=== PATIENT | female | born 1975 | race Caucasian/White ===

== ENCOUNTER 2018-06-08 16:03 | Emergency (ER) | payer SELFPAY ==
[~2018-06-08] VITALS: Ht 170.2 cm; Wt 105.8 kg
[~2018-06-08 16:03] MED LIST: ACET650T10 PO; AMLO10TA4 PO; AMOX1TAB61 PO; CEPH-263 PO; CLON-276 PO; CLON0.3T PO; CLON1PAT9 TD; FLUC100T7 PO; HYDR-2155 PO; HYDR-2765 PO; HYDR-3165 PO; HYDR1TAB13 PO; HYDR50TA6 PO; HYDR7.5S PO; LISI-334 PO; LISI10TA2 PO; METO100T7 PO; METO50TA29 PO; METO50TA6 PO; METR250T PO; METR500T PO; ONDA4TAB10 SL; ONDA4TAB7 PO; ONDA8TAB12 PO; OXYC1TAB15 PO; OXYC1TAB19 PO; OXYC1TAB22 PO
[2018-06-08] MEDS ORDERED: IV NORMAL SALINE 1,000ML 1,000 ML IV ONE (17:00)
--- NOTE | 2018-06-08 17:00 | PHYS DOC ---
Past History Past Medical History: Cancer, Diverticulitis, Diabetes, Heart Disease, Other Past Surgical History: Cholecystectomy, Hysterectomy, Other Smoking: Less than 1pk/day Alcohol Use: None Drug Use: None Adult General Chief Complaint Chief Complaint: FACE PAIN HPI HPI Patient is a 43-year-old female presents with right jaw pain and dislocation. She has done this multiple times previously. This afternoon she was retching due to the nausea, vomiting, and diarrheal illness she is experiencing. Her right jaw/TMJ dislocated. She has been unable to get it back into place. She has a history of this due to a jaw fracture in childhood. No difficulty breathing or swallowing. Patient is on Coumadin for renal infarctions. [] Review of Systems Review of Systems Constitutional: Denies fever or chills [] Eyes: Denies change in visual acuity, redness, or eye pain [] HENT: Denies nasal congestion or sore throat [] Respiratory: Denies cough or shortness of breath [] Cardiovascular: No chest pain or palpitations[] GI: Denies abdominal pain, nausea, vomiting, bloody stools or diarrhea [] : Denies dysuria or hematuria [] Musculoskeletal: Denies back pain, see history of present illness[] Integument: Denies rash or skin lesions [] Neurologic: Denies headache, focal weakness or sensory changes [] Endocrine: Denies polyuria or polydipsia [] All other systems were reviewed and found to be within normal limits, except as documented in this note. Current Medications Current Medications Current Medications Medications (Trade) Dose Ordered Sig/Misty Start Time Stop Time Status Last Admin Dose Admin Fentanyl Citrate (Fentanyl 2ml Vial) 50 mcg 1X ONCE 06/08/18 17:00 06/08/18 17:01 UNV Midazolam HCl (Versed) 4 mg 1X ONCE 06/08/18 17:00 06/08/18 17:01 UNV Allergies Allergies Allergies Coded Allergies Type Severity Reaction Last Updated Verified ketorolac Allergy Severe 11/02/14 No NSAIDS (Non-Steroidal Anti-Inflamma Allergy Intermediate Rash 11/02/14 No levofloxacin Allergy Intermediate Hives 11/02/14 No nitroglycerin Allergy Intermediate 11/02/14 No prochlorperazine Allergy Intermediate 11/02/14 No Physical Exam Physical Exam Constitutional: Well developed, well nourished, no acute distress, non-toxic appearance. [] HENT: Normocephalic, jaw deviated to the left, limited mouth opening, bilateral external ears normal, oropharynx moist, no oral exudates, nose normal. [] Eyes: PERRLA, EOMI, conjunctiva normal, no discharge. [] Neck: Normal range of motion, no tenderness, supple, no stridor. [] Cardiovascular:Heart rate regular rhythm, no murmur [] Lungs & Thorax: Bilateral breath sounds clear to auscultation [] Abdomen: Bowel sounds normal, soft, no tenderness, no masses, no pulsatile masses. [] Skin: Warm, dry, no erythema, no rash. [] Back: No tenderness, no CVA tenderness. [] Extremities: No tenderness, no cyanosis, no clubbing, ROM intact, no edema. [] Neurologic: Alert and oriented X 3, normal motor function, normal sensory function, no focal deficits noted. [] Psychologic: Affect normal, judgement normal, mood normal. [] Current Patient Data Vital Signs Vital Signs Date Time Temp Pulse Resp B/P (MAP) Pulse Ox O2 Delivery O2 Flow Rate FiO2 06/08/18 16:19 98.3 100 18 98 Room Air EKG EKG [] Radiology/Procedures Radiology/Procedures [] Course & Med Decision Making Course & Med Decision Making Pertinent Labs and Imaging studies reviewed. (See chart for details) ED course: Patient arrived, was placed in bed, and tolerated exam well. Patient was given an initial sedation with 200 g of fentanyl and 10 mg of Versed which when she relaxed her jaw seemed to go midline but unable to fully relax her and as she recovered from this she was still deviating her jaw to the left. When my colleague arrived at 1800 week performed a deeper sedation using 100 mg of propofol. There was no specific reduction of the jaw. Everything lined up. Without evidence of a dislocation. Patient recovered from the sedation and was discharged in improved condition.[] Dragon Disclaimer Dragon Disclaimer This electronic medical record was generated, in whole or in part, using a voice recognition dictation system. Departure Departure: Impression: Primary Impression: Jaw pain Additional Impression: Nausea and vomiting Disposition: HOME, SELF-CARE Condition: IMPROVED Referrals: MAGGI CASANOVA MD (PCP) Follow-up in 2 days Patient Instructions: Jaw Dislocation Additional Instructions: Drink plenty of fluids, frequent small sips. No fatty foods, no milk, and no pepper for the next 48 hours. For the next 48 hours eat a diet rich in carbohydrates with foods such as bananas, rice, applesauce, and toast. Follow-up with your regular doctor in 2 days. Return to the ER if worsening discomfort or any other concerns. Scripts Hyoscyamine Sulfate (LEVSIN) 0.125 Mg Tablet 0.125 MG PO QID for abdominal pain/cramping, #30 TAB Prov: DIONE SPARKS 06/08/18 Metoclopramide Hcl (REGLAN) 10 Mg Tablet 10 MG PO QID for nausea and vomiting, #30 TAB Prov: DIONE SPARKS DO 06/08/18 Procedural Sedation Proc Sed Indication: Right jaw dislocation [] Consent: Yes[] Physician Involvement: The attending physician was present and supervising this procedure. Last by mouth solids were yesterday. Last by mouth liquids were this morning, greater than 6 hours prior to arrival Pre-Sedation Documentation and Exam: Limited jaw opening due to the dislocation, jaw deviated to left [] Airway Assessment: Patent maintainable[] Prior History of Anesthesia Complications: None[] ASA Classification: 2[] Sedation/ Anesthesia Plan: Fentanyl and Versed[] Medications Used: Fentanyl and Versed, and propofol[] Monitoring and Safety: The patient was placed on a quality assurance monitor final and vital signs, pulse oximetry and level of consciousness were continuously evaluated throughout the procedure. The patient was closely monitored until recovery from the medications was complete and the patient had returned to baseline status. Respiratory therapy was on standby at all times during the procedure. (The following sections must be completed) Post-Sedation Vital Signs: [EDM.VS] Post-Sedation Exam: Patient awake alert, maintaining airway, no deviation of the jaw[] Complications: Transient hypoxia to 89%[] Vital Signs Vital Signs Date Time Temp Pulse Resp B/P (MAP) Pulse Ox O2 Delivery O2 Flow Rate FiO2 06/08/18 16:19 98.3 100 18 98 Room Air Problem Qualifiers Additional Impression: Nausea and vomiting Vomiting type: unspecified Vomiting Intractability: non-intractable Qualified Codes: R11.2 - Nausea with vomiting, unspecified DIONE SPARKS Jun 08, 2018 17:00
[2018-06-08] MEDS ORDERED: MIDAZOLAM HCL PF 5 MG/5 ML VIAL. IV ONE (17:15)
[2018-06-08 17:25] LABS: BASO % 0 % (0-3); EOS # 0.2 x10^3/uL (0.0-0.7); EOS % 2 % (0-3); HEMATOCRIT 47.3 % (36.0-47.0); HEMOGLOBIN 16.1 g/dL (12.0-15.5); LYMPH # 2.5 x10^3/uL (1.0-4.8); LYMPH % 21 % (24-48); MEAN CORPUSCULAR HEMOGLOBIN 30 pg (25-35); MEAN CORPUSCULAR HGB CONC 34 g/dL (31-37); MEAN CORPUSCULAR VOLUME 87 fL (79-100); MONO # 0.8 x10^3/uL (0.0-1.1); MONO % 7 % (0-9); NEUT # 8.5 x10^3uL (1.8-7.7); NEUT % 71 % (31-73); PLATELET COUNT 295 x10^3/uL (140-400); RED BLOOD COUNT 5.42 x10^6/uL (3.50-5.40); RED CELL DISTRIBUTION WIDTH 15.5 % (11.5-14.5)
[2018-06-08 17:44] LABS: ALBUMIN 3.9 g/dL (3.4-5.0); ALBUMIN/GLOBULIN RATIO 0.9 (1.0-1.7); CALCIUM 9.5 mg/dL (8.5-10.1); CREATININE 0.7 mg/dL (0.6-1.0); GFR 90.5; POTASSIUM 4.2 mmol/L (3.5-5.1); TOTAL BILIRUBIN 0.3 mg/dL (0.2-1.0); TOTAL PROTEIN 8.4 g/dL (6.4-8.2)
[2018-06-08 17:45] LABS: PREG TEST PT QUAL NEGATIVE (NEG)
[2018-06-08] MEDS ORDERED: PROPOFOL 20 ML IV ONE (18:07)
[2018-06-08 18:40] VITALS: BP 133/75
[2018-06-08] MEDS ORDERED: METO10TA81 PO (18:51)
[2018-06-08] MEDS ORDERED: HYOS0.1264 PO (18:51)
== END 2018-06-08 19:00 | disposition home or self-care (01) ==
LOC: ER 16:03
DX: S03.01XA Dislocation of jaw, right side, initial encounter (principal); R11.2 Nausea with vomiting, unspecified; R19.7 Diarrhea, unspecified; E11.9 Type 2 diabetes mellitus without complications; F17.200 Nicotine dependence, unspecified, uncomplicated; Z88.6 Allergy status to analgesic agent; Z88.1 Allergy status to other antibiotic agents; Z88.8 Allergy status to other drugs, medicaments and biological substances; X58.XXXA Exposure to other specified factors, initial encounter; Y93.89 Activity, other specified; Y92.89 Other specified places as the place of occurrence of the external cause; Y99.8 Other external cause status
CPT/HCPCS: 21480; 36415; 80053; 83690; 84703; 85025; 85610; 96360; 99285; J2250; J3010; 99152; 99284-25; J7030

== ENCOUNTER 2018-07-23 16:29 | Emergency (ER) | payer SELFPAY ==
[~2018-07-23] VITALS: Ht 170.2 cm; Wt 100.7 kg
[~2018-07-23 16:29] MED LIST changes: +HYOS0.1264 PO; +METO10TA81 PO
[2018-07-23] MEDS ORDERED: IV NORMAL SALINE 1,000ML 1,000 ML IV SCH (17:23)
--- NOTE | 2018-07-23 17:29 | PHYS DOC ---
Past History Past Medical History: Cancer (breast and uterine), Hypertension, Kidney Stones, Other ([facility]) Past Surgical History: Cholecystectomy, Hysterectomy, Other Additional Past Surgical Histo: cardiac stent (DIONE SPARKS DO) Smoking: Less than 1pk/day Additional Smoking Information: 1 PPD Alcohol Use: None Drug Use: None (DIONE SPARKS DO) Adult General Chief Complaint Chief Complaint: BLOOD IN URINE HPI HPI Patient is a 43-year-old female presents with right flank pain and hematuria. This started this morning. Similar to previous episodes of kidney stones. No dysuria. No urgency or frequency. No fever. No relief with home medicines. Patient is on Coumadin for previous cardiac issues to include a cardiac stent, as well as previous cancer. Nothing makes the symptoms better or worse. Pain is currently as 7 out of 10[] (DIONE SPARKS DO) Review of Systems Review of Systems Constitutional: Denies fever or chills [] Eyes: Denies change in visual acuity, redness, or eye pain [] HENT: Denies nasal congestion or sore throat [] Respiratory: Denies cough or shortness of breath [] Cardiovascular: No chest pain or palpitations[] GI: Denies abdominal pain, some nausea. No vomiting, bloody stools or diarrhea [] : Denies dysuria and a see history of present illness[] Musculoskeletal: Denies back pain or joint pain [] Integument: Denies rash or skin lesions [] Neurologic: Denies headache, focal weakness or sensory changes [] Endocrine: Denies polyuria or polydipsia [] All other systems were reviewed and found to be within normal limits, except as documented in this note. (DIONE SPARKS DO) Allergies Allergies Allergies Coded Allergies Type Severity Reaction Last Updated Verified ketorolac Allergy Severe 11/02/14 No NSAIDS (Non-Steroidal Anti-Inflamma Allergy Intermediate Rash 11/02/14 No levofloxacin Allergy Intermediate Hives 11/02/14 No nitroglycerin Allergy Intermediate 11/02/14 No prochlorperazine Allergy Intermediate 11/02/14 No (DIONE SPARKS DO) Physical Exam Physical Exam Constitutional: Well developed, well nourished, mild discomfort, non-toxic appearance. [] HENT: Normocephalic, atraumatic, bilateral external ears normal, oropharynx moist, no oral exudates, nose normal. [] Eyes: PERRLA, EOMI, conjunctiva normal, no discharge. [] Neck: Normal range of motion, no tenderness, supple, no stridor. [] Cardiovascular:Heart rate is tachycardic with a regular rhythm, no murmur [] Lungs & Thorax: Bilateral breath sounds clear to auscultation [] Abdomen: Bowel sounds normal, soft, no tenderness, no masses, no pulsatile masses. [] Skin: Warm, dry, no erythema, no rash. [] Back: No tenderness, right CVA tenderness, no left CVA tenderness. [] Extremities: No tenderness, no cyanosis, no clubbing, ROM intact, no edema. [] Neurologic: Alert and oriented X 3, normal motor function, normal sensory function, no focal deficits noted. [] Psychologic: Affect normal, judgement normal, mood normal. [] (DIONE SPARKS DO) Current Patient Data Vital Signs Vital Signs Date Time Temp Pulse Resp B/P (MAP) Pulse Ox O2 Delivery O2 Flow Rate FiO2 07/23/18 16:57 98.3 125 24 97 Room Air (DIONE SPARKS DO) EKG EKG [] (DIONE SPARKS DO) Radiology/Procedures Radiology/Procedures [] (DIONE SPARKS DO) Radiology/[place] [id number] IMAGING REPORT Signed PATIENT: JOE ROSE ACCOUNT: [id number] : 1975 LOCATION: ER AGE: 43 SEX: F EXAM STATUS: REG ER ORD. PHYSICIAN: DIONE SPARKS DO REASON: Severe right flank pain, nausea. Hx: Kidney stones PROCEDURE: CT ABDOMEN PELVIS WO CONTRAST Exam performed: CT abdomen and pelvis without contrast. HISTORY: Severe right flank pain history of renal stones. DATE OF SERVICE: 07/23/2018. COMPARISON: CT abdomen and pelvis without contrast from July 23, 2015. TECHNIQUE: Contiguous helical acquisitions are obtained through the abdomen and pelvis without IV contrast. Sagittal and coronal reformatted images are obtained and reviewed. FINDINGS: Minimal linear opacity seen in the anterior right lower lobe, the remainder Lung bases are clear. Visualized heart is normal. Unopacified liver, spleen and pancreas appear normal. Cholecystectomy. Both adrenal glands and bilateral kidneys are normal in size. There is no hydronephrosis or nephrolithiasis. Mild atheromatous aortic calcification. Unopacified small and large bowel loops are nondilated and unremarkable. Appendix is normal. No inflammatory changes in the right lower quadrant. Sigmoid diverticulosis. Extensive stool in the rectosigmoid region. Urinary bladder is distended. Hysterectomy. No adnexal masses seen. Bones are normal. IMPRESSION: No acute intra-abdominal or pelvic process detected. PQRS Compliance Statement: One or more of the following individualized dose reduction techniques were utilized for this examination: 1. Automated exposure control 2. Adjustment of the mA and/or kV according to patient size 3. Use of iterative reconstruction technique Electronically signed by: Kelli Jean MD (07/23/2018 7:00 PM) [facility] DICTATED AND SIGNED BY: KELLI JEAN MD DATE: 07/23/18 1900 CC: DIONE SPARKS DO; NADINE FLEMING MD; MAGGI CASANOVA MD ~ (NADINE FLEMING MD) Course & Med Decision Making Course & Med Decision Making Pertinent Labs and Imaging studies reviewed. (See chart for details) [ED course: Patient arrived, was placed in bed, and tolerated exam well. Patient care was endorsed to the night physician at 1800 with laboratory testing and imaging pending.] (DIONE SPARKS DO) Course & Med Decision Making Dianelys[pect renal colic- push fluids, vitamin C drinks. Follow with primary. Return if any concerns. Tylenol and Percocet for marked pain. Zofran for nausea and vomiting. Return if any concerns. Avoid constipation with MOM daily if taking a narcotic. Must follow up hematuria, avoid dehydration . Return if any concerns Impression: 1. Renal Colic 2. Dehydration 3. Hematuria 4. Elevated Glucose 140 Must follow up labs and review CT with primary. (NADINE FLEMING MD) Dragon Disclaimer Dragon Disclaimer This electronic medical record was generated, in whole or in part, using a voice recognition dictation system. (DIONE SPARKS DO) Departure Departure: Referrals: MAGGI CASANOVA MD (PCP) Scripts Oxycodone HCl/Acetaminophen (Percocet 5-325 mg Tablet) 1 Each Tablet 1 EACH PO qidp for colic, #30 TAB Prov: NADINE FLEMING MD 07/23/18 Ondansetron Hcl (ZOFRAN) 8 Mg Tablet 8 MG PO QIDPRN PRN for NAUSEA/VOMITING, #30 BOTTLE Prov: NADINE FLEMING MD 07/23/18 Discharge Summary Visit Information Final Diagnosis Problems Medical Problems: (1) Renal colic Status: Acute (NADINE FLEMING MD) Brief Hospital Course Allergies Allergies Coded Allergies Type Severity Reaction Last Updated Verified ketorolac Allergy Severe 11/02/14 No NSAIDS (Non-Steroidal Anti-Inflamma Allergy Intermediate Rash 11/02/14 No levofloxacin Allergy Intermediate Hives 11/02/14 No nitroglycerin Allergy Intermediate 11/02/14 No prochlorperazine Allergy Intermediate 11/02/14 No Vital Signs Vital Signs Date Time Temp Pulse Resp B/P (MAP) Pulse Ox O2 Delivery O2 Flow Rate FiO2 07/23/18 20:20 98.2 101 20 184/123 (143) 97 Room Air Lab Results Laboratory Tests Test 07/23/18 17:30 07/23/18 18:25 Urine Collection Type Unknown Urine Color Sravani Urine Clarity Hazy Urine pH 7.5 Urine Specific [place] 1.015 Urine Protein 100 mg/dl (NEG-TRACE) Urine Glucose (UA) Neg mg/dL (NEG) Urine Ketones (Stick) Neg mg/dL (NEG) Urine Blood Large (NEG) Urine Nitrite Neg (NEG) Urine Bilirubin Neg (NEG) Urine Urobilinogen Dipstick 0.2 mg/dL (0.2 mg/dL) Urine Leukocyte Esterase Neg (NEG) Urine RBC 1-2 /HPF (0-2) Urine WBC 0 /HPF (0-4) Urine Squamous Epithelial Cells Occ /LPF Urine Bacteria 0 /HPF (0-FEW) White Blood Count 9.7 x10^3/uL (4.0-11.0) Red Blood Count 5.00 x10^6/uL (3.50-5.40) Hemoglobin 15.0 g/dL (12.0-15.5) Hematocrit 44.5 % (36.0-47.0) Mean Corpuscular Volume 89 fL (79-100) Mean Corpuscular Hemoglobin 30 pg (25-35) Mean Corpuscular Hemoglobin Concent 34 g/dL (31-37) Red Cell Distribution Width 15.2 % (11.5-14.5) Platelet Count 230 x10^3/uL (140-400) Neutrophils (%) (Auto) 69 % (31-73) Lymphocytes (%) (Auto) 22 % (24-48) Monocytes (%) (Auto) 7 % (0-9) Eosinophils (%) (Auto) 1 % (0-3) Basophils (%) (Auto) 1 % (0-3) Neutrophils # (Auto) 6.7 x10^3uL (1.8-7.7) Lymphocytes # (Auto) 2.1 x10^3/uL (1.0-4.8) Monocytes # (Auto) 0.7 x10^3/uL (0.0-1.1) Eosinophils # (Auto) 0.1 x10^3/uL (0.0-0.7) Basophils # (Auto) 0.1 x10^3/uL (0.0-0.2) Prothrombin Time 10.6 SEC (9.4-11.4) Prothromb Time International Ratio 1.1 (0.9-1.1) Activated Partial Thromboplast Time 25 SEC (23-33) Sodium Level 142 mmol/L (136-145) Potassium Level 3.6 mmol/L (3.5-5.1) Chloride Level 105 mmol/L (98-107) Carbon Dioxide Level 27 mmol/L (21-32) Anion Gap 10 (6-14) Blood Urea Nitrogen 10 mg/dL (7-20) Creatinine 0.7 mg/dL (0.6-1.0) Estimated GFR (Cockcroft-Gault) 90.5 BUN/Creatinine Ratio 14 (6-20) Glucose Level 140 mg/dL (70-99) Calcium Level 9.4 mg/dL (8.5-10.1) Total Bilirubin 0.4 mg/dL (0.2-1.0) Aspartate Amino Transf (AST/SGOT) 18 U/L (15-37) Alanine Aminotransferase (ALT/SGPT) 25 U/L (14-59) Alkaline Phosphatase 104 U/L (46-116) Total Protein 7.7 g/dL (6.4-8.2) Albumin 3.7 g/dL (3.4-5.0) Albumin/Globulin Ratio 0.9 (1.0-1.7) Serum Test, Qualitative Negative (NEG) Brief Hospital Course Ms. Rose is a 43 old male who presented with renal colic. (NADINE FLEMING MD) Discharge Information Condition at Discharge: Improved, Stable Disposition/Orders: D/C to Home Dischare Medications Current Medications Morphine Sulfate (Morphine 2mg Syringe) 2 mg PRN Q15MIN PRN IV/SQ PAIN GREATER THAN 3/10 Last administered on 07/23/18at 19:18; Start 07/23/18 at 17:30; Stop 07/23/18 at 20:56; Status DC Sodium Chloride 1,000 ml @ 1,000 mls/hr Q1H IV Last administered on 07/23/18at 18:22; Start 07/23/18 at 17:23; Stop 07/23/18 at 18:22; Status DC Ondansetron HCl (Zofran) 4 mg 1X ONCE IV Last administered on 07/23/18at 18:20; Start 07/23/18 at 17:30; Stop 07/23/18 at 17:31; Status DC Magnesium Hydroxide (Milk Of Magnesia) 2,400 mg 1X ONCE PO ; Start 07/23/18 at 20:30; Stop 07/23/18 at 20:31; Status DC Active Scripts Active Percocet 5-325 mg Tablet (Oxycodone HCl/Acetaminophen) 1 Each Tablet 1 Each PO QIDP Zofran (Ondansetron Hcl) 8 Mg Tablet 8 Mg PO QIDPRN PRN Levsin (Hyoscyamine Sulfate) 0.125 Mg Tablet 0.125 Mg PO QID Reglan (Metoclopramide Hcl) 10 Mg Tablet 10 Mg PO QID Zofran Odt (Ondansetron) 8 Mg Tab.rapdis 8 Mg PO QIDPRN PRN Diflucan (Fluconazole) 100 Mg Tablet 100 Mg PO DAILY Flagyl (Metronidazole) 250 Mg Tablet 500 Mg PO TID 10 Days Keflex (Cephalexin) 250 Mg Capsule 500 Mg PO TID 10 Days Vicodin 5-300 Mg Tablet (Hydrocodone Bit/Acetaminophen) 1 Each Tablet 1 Each PO QIDPRN PRN Zofran (Ondansetron Hcl) 4 Mg Tablet 1 Tab PO Q6HRS Zofran Odt (Ondansetron) 4 Mg Tab.rapdis 1 Tab SL Q6-8HRS PRN [place] 5-325 Tablet (Hydrocodone Bit/Acetaminophen) 1 Each Tablet 1 Tab PO PRN Q6HRS PRN Augmentin 875-125 Tablet (Amoxicillin/Potassium Clav) 1 Each Tablet 1 Tab PO BID Vicodin 5-300 Mg Tablet (Hydrocodone Bit/Acetaminophen) 1 Each Tablet 1 Each PO QIDPRN PRN Percocet 7.5-325 Mg Tablet (Oxycodone Hcl/Acetaminophen) 1 Each Tablet 1 Tab PO QID PRN Hydrocodone-Apap 7.5-325 (Hydrocodone Bit/Acetaminophen) 1 Each Tablet 1 Tab PO QID Clonidine Hcl 0.2 Mg Tablet 1 Tab PO BID Reported Catapres-Tts 1 (Clonidine) 1 Each Patch.tdwk 1 Each TD WEEKLY Hydrochlorothiazide Tablet (Hydrochlorothiazide) 50 Mg Tablet 25 Mg PO DAILY Metoprolol Tartrate 100 Mg Tablet 100 Mg PO BID Lisinopril 20 Mg Tablet 20 Mg PO DAILY Norvasc (Amlodipine Besylate) 10 Mg Tablet 1 Tab PO DAILY (NADINE FLEMING MD) Dragon Disclaimer This chart was dictated in whole or in part using Voice Recognition software in a busy, high-work load, and often noisy Emergency Department environment. It may contain unintended and wholly unrecognized errors or omissions. (NADINE FLEMING MD) DIONE SPARKS DO Jul 23, 2018 17:29 NADINE FLEMING MD Jul 23, 2018 19:57
[2018-07-23] MEDS ORDERED: ONDANSETRON PF 4 MG/2 ML VIAL. IV ONE (17:30)
[2018-07-23] MEDS: MORPHINE SULFATE 2 MG/ML DISP.SYRIN. IV/SQ PRN ×2 (18:21→19:18)
[2018-07-23 18:43] LABS: BASO # 0.1 x10^3/uL (0.0-0.2); BASO % 1 % (0-3); EOS # 0.1 x10^3/uL (0.0-0.7); EOS % 1 % (0-3); HEMATOCRIT 44.5 % (36.0-47.0); LYMPH # 2.1 x10^3/uL (1.0-4.8); LYMPH % 22 % (24-48); MEAN CORPUSCULAR HEMOGLOBIN 30 pg (25-35); MEAN CORPUSCULAR HGB CONC 34 g/dL (31-37); MEAN CORPUSCULAR VOLUME 89 fL (79-100); MONO # 0.7 x10^3/uL (0.0-1.1); MONO % 7 % (0-9); NEUT # 6.7 x10^3uL (1.8-7.7); NEUT % 69 % (31-73); PLATELET COUNT 230 x10^3/uL (140-400); RED CELL DISTRIBUTION WIDTH 15.2 % (11.5-14.5); WHITE BLOOD COUNT 9.7 x10^3/uL (4.0-11.0)
[2018-07-23 18:58] LABS: PREG TEST PT QUAL NEGATIVE (NEG)
[2018-07-23 18:59] LABS: BACTERIA,URINE 0 /HPF (0-FEW); BILIRUBIN,URINE NEG (NEG); CLARITY,URINE HAZY; COLOR,URINE AMBER; GLUCOSE,URINE NEG (NEG); NITRITE,URINE NEG (NEG); SQUAMOUS EPITHELIAL CELL,UR OCC /LPF; UROBILINOGEN,URINE 0.2 mg/dL (0.2 mg/dL); WBC,URINE 0 /HPF (0-4)
--- NOTE | 2018-07-23 19:03 | RAD ---
Exam performed: CT abdomen and pelvis without contrast. HISTORY: Severe right flank pain history of renal stones. DATE OF SERVICE: 07/23/2018. COMPARISON: CT abdomen and pelvis without contrast from July 23, 2015. TECHNIQUE: Contiguous helical acquisitions are obtained through the abdomen and pelvis without IV contrast. Sagittal and coronal reformatted images are obtained and reviewed. FINDINGS: Minimal linear opacity seen in the anterior right lower lobe, the remainder Lung bases are clear. Visualized heart is normal. Unopacified liver, spleen and pancreas appear normal. Cholecystectomy. Both adrenal glands and bilateral kidneys are normal in size. There is no hydronephrosis or nephrolithiasis. Mild atheromatous aortic calcification. Unopacified small and large bowel loops are nondilated and unremarkable. Appendix is normal. No inflammatory changes in the right lower quadrant. Sigmoid diverticulosis. Extensive stool in the rectosigmoid region. Urinary bladder is distended. Hysterectomy. No adnexal masses seen. Bones are normal. IMPRESSION: No acute intra-abdominal or pelvic process detected. PQRS Compliance Statement: One or more of the following individualized dose reduction techniques were utilized for this examination: 1. Automated exposure control 2. Adjustment of the mA and/or kV according to patient size 3. Use of iterative reconstruction technique Electronically signed by: Kelli Jean MD (07/23/2018 7:00 PM) [facility]
[2018-07-23 19:06] LABS: ALBUMIN 3.7 g/dL (3.4-5.0); ALBUMIN/GLOBULIN RATIO 0.9 (1.0-1.7); CALCIUM 9.4 mg/dL (8.5-10.1); CREATININE 0.7 mg/dL (0.6-1.0); GFR 90.5; POTASSIUM 3.6 mmol/L (3.5-5.1); TOTAL BILIRUBIN 0.4 mg/dL (0.2-1.0); TOTAL PROTEIN 7.7 g/dL (6.4-8.2)
[2018-07-23] MEDS ORDERED: OXYC-325 PO (20:02)
[2018-07-23] MEDS ORDERED: ONDA8TAB9 PO (20:02)
[2018-07-23 20:20] VITALS: BP 184/123
[2018-07-23] MEDS ORDERED: MAGNESIUM HYDROXIDE 2,400 MG/30 ML ORAL.SUSP. PO ONE (20:30)
== END 2018-07-23 20:20 | disposition home or self-care (01) ==
LOC: ER 16:29
DX: N23 Unspecified renal colic (principal); R73.9 Hyperglycemia, unspecified; E86.0 Dehydration; I10 Essential (primary) hypertension; F17.200 Nicotine dependence, unspecified, uncomplicated; Z87.442 Personal history of urinary calculi; Z90.49 Acquired absence of other specified parts of digestive tract; Z90.710 Acquired absence of both cervix and uterus; Z88.6 Allergy status to analgesic agent; Z88.1 Allergy status to other antibiotic agents; Z88.8 Allergy status to other drugs, medicaments and biological substances
CPT/HCPCS: 36415; 74176; 80053; 81001; 84703; 85025; 85610; 85730; 96361; 96374; 96375; 96376; 99285; J2270; J2405; J7030

== ENCOUNTER 2018-10-25 12:28 | Emergency (ER) | payer SELFPAY ==
[~2018-10-25] VITALS: Ht 170.2 cm; Wt 105.8 kg
[~2018-10-25 12:28] MED LIST changes: +ONDA8TAB9 PO; +OXYC-325 PO
--- NOTE | 2018-10-25 12:46 | PHYS DOC ---
Past History Past Medical History: Cancer, Hypertension, Kidney Stones, Other Past Surgical History: Cholecystectomy, Hysterectomy, Other Additional Past Surgical Histo: cardiac stent Smoking: Less than 1pk/day Alcohol Use: None Drug Use: None Adult General Chief Complaint Chief Complaint: DENTAL PROBLEM HPI HPI Patient is a 43-year-old female presents with right jaw dislocation. This is happened to her previously. This morning she was yawning when she felt her jaw pop out of socket. No trauma. No nausea or vomiting. Last oral intake was milk at approximately 7 AM, last solid food intake was yesterday. No difficulty breathing. Discomfort is moderate. No radiation of discomfort.[] Review of Systems Review of Systems Constitutional: Denies fever or chills [] Eyes: Denies change in visual acuity, redness, or eye pain [] HENT: Denies nasal congestion or sore throat, see history of present illness [] Respiratory: Denies cough or shortness of breath [] Cardiovascular: No chest pain or palpitations[] GI: Denies abdominal pain, nausea, vomiting, bloody stools or diarrhea [] : Denies dysuria or hematuria [] Musculoskeletal: Denies back pain or joint pain [] Integument: Denies rash or skin lesions [] Neurologic: Denies headache, focal weakness or sensory changes [] Endocrine: Denies polyuria or polydipsia [] All other systems were reviewed and found to be within normal limits, except as documented in this note. Allergies Allergies Allergies Coded Allergies Type Severity Reaction Last Updated Verified ketorolac Allergy Severe 11/02/14 No NSAIDS (Non-Steroidal Anti-Inflamma Allergy Intermediate Rash 11/02/14 No levofloxacin Allergy Intermediate Hives 11/02/14 No nitroglycerin Allergy Intermediate 11/02/14 No prochlorperazine Allergy Intermediate 11/02/14 No Physical Exam Physical Exam Constitutional: Well developed, well nourished, no acute distress, non-toxic appearance. [] HENT: Normocephalic, atraumatic, bilateral external ears normal. Limited mouth opening. Jaw shifted to the left.. [] Eyes: PERRLA, EOMI, conjunctiva normal, no discharge. [] Neck: Normal range of motion, no tenderness, supple, no stridor. [] Cardiovascular:Heart rate regular rhythm, no murmur [] Lungs & Thorax: Bilateral breath sounds clear to auscultation [] Abdomen: Not examined[] Skin: Warm, dry, no erythema, no rash. [] Back: No tenderness, no CVA tenderness. [] Extremities: No tenderness, no cyanosis, no clubbing, ROM intact, no edema. [] Neurologic: Alert and oriented X 3, normal motor function, normal sensory function, no focal deficits noted. [] Psychologic: Affect normal, judgement normal, mood normal. [] EKG EKG [] Radiology/Procedures Radiology/Procedures [] Course & Med Decision Making Course & Med Decision Making Pertinent Labs and Imaging studies reviewed. (See chart for details) ED course: Patient arrived, was placed in bed, and tolerated exam well. Consent was obtained for the procedure and procedural sedation. Procedural sedation was performed with complication of nausea and vomiting post procedure. She was given medicine to address continued discomfort since her jaw had been dislocated for several hours. She was discharged in improved condition. Medical decision making: Patient with history of TMJ dislocation and it appears that she has had another episode of this. No evidence of a fracture. No evidence of axial trauma. Evidence of intractable nausea or vomiting.[] Dragon Disclaimer Dragon Disclaimer This electronic medical record was generated, in whole or in part, using a voice recognition dictation system. Departure Departure: Impression: Primary Impression: TMJ dislocation Disposition: 01 HOME, SELF-CARE Condition: IMPROVED Referrals: MAGGI CASANOVA MD (PCP) Follow-up in 2 days Patient Instructions: Jaw Dislocation Additional Instructions: No driving for 8 hours. Follow-up with your primary doctor and oral surgeon in 2 days for reevaluation. Return to the ER if worsening discomfort, difficulty breathing, or any other concerns. Scripts Hydrocodone Bit/Acetaminophen (NORCO 5-325 TABLET) 1 Each Tablet 1 TAB PO Q4-6HRS for severe pain, #10 TAB Prov: DIONE SPARKS DO 10/25/18 Procedural Sedation Proc Sed Indication: Right jaw/TMJ dislocation[] Consent: Yes[] Physician Involvement: The attending physician was present and supervising this procedure. Pre-Sedation Documentation and Exam: See history of present illness[] Airway Assessment: Limited jaw opening due to the TMJ dislocation[] Prior History of Anesthesia Complications: None [] ASA Classification: 2[] Sedation/ Anesthesia Plan: Propofol[] Medications Used: Propofol, 160 mg[] Monitoring and Safety: The patient was placed on a security monitor and vital signs, pulse oximetry and level of consciousness were continuously evaluated throughout the procedure. The patient was closely monitored until recovery from the medications was complete and the patient had returned to baseline status. Respiratory therapy was on standby at all times during the procedure. (The following sections must be completed) Post-Sedation Vital Signs: [EDM.VS] Post-Sedation Exam: Normal jaw opening and alignment [] Complications: Nausea and vomiting, addressed with Zofran[] Problem Qualifiers Primary Impression: TMJ dislocation Encounter type: initial encounter Qualified Codes: S03.00XA - Dislocation of jaw, unspecified side, initial encounter DIONE SPARKS DO Oct 25, 2018 12:46
[2018-10-25] MEDS ORDERED: IV NORMAL SALINE 500ML 500 ML IV ONE (13:00)
[2018-10-25] MEDS ORDERED: PROPOFOL 20 ML IV ONE (13:00)
[2018-10-25] MEDS ORDERED: ONDANSETRON PF 4 MG/2 ML VIAL. ONE (13:41)
[2018-10-25] MEDS ORDERED: ONDANSETRON PF 4 MG/2 ML VIAL. IV ONE (13:45)
[2018-10-25] MEDS ORDERED: HYDR-3165 PO (13:59)
[2018-10-25] MEDS ORDERED: HYDROcodone/APAP 5/325MG 1 TAB TABLET PO ONE (14:00)
[2018-10-25 14:03] VITALS: BP 170/121
== END 2018-10-25 14:10 | disposition home or self-care (01) ==
LOC: ER 12:28
DX: S03.01XA Dislocation of jaw, right side, initial encounter (principal); I10 Essential (primary) hypertension; Z87.442 Personal history of urinary calculi; Z90.49 Acquired absence of other specified parts of digestive tract; Z90.710 Acquired absence of both cervix and uterus; F17.200 Nicotine dependence, unspecified, uncomplicated; Z95.818 Presence of other cardiac implants and grafts; Z88.6 Allergy status to analgesic agent; Z88.1 Allergy status to other antibiotic agents; Z88.8 Allergy status to other drugs, medicaments and biological substances; X50.9XXA Other and unspecified overexertion or strenuous movements or postures, initial encounter; Y93.89 Activity, other specified; Y92.89 Other specified places as the place of occurrence of the external cause; Y99.8 Other external cause status
CPT/HCPCS: 21480; 96374; 99285; J2405; J2704; J7040; 96361

== ENCOUNTER 2018-12-12 14:27 | Emergency (ER) | payer SELFPAY ==
[~2018-12-12] VITALS: Ht 170.2 cm; Wt 105.8 kg
[2018-12-12 14:38] VITALS: BP 206/121
[2018-12-12] MEDS ORDERED: PENI500T PO (14:58)
--- NOTE | 2018-12-12 15:27 | ED.ADGEN ---
Past History Past Medical History: Cancer, Hypertension, Kidney Stones, Other Additional Past Medical Histor: jaw dislocation Past Surgical History: Cholecystectomy, Hysterectomy, Other Additional Past Surgical Histo: cardiac stent Smoking: Less than 1pk/day Alcohol Use: Occasionally Drug Use: None Adult General Chief Complaint Chief Complaint Patient is a 43-year-old female well-known to this emergency department presents with dental pain times one week, with pain radiating to right upper mandible and clear. Patient has history of dental caries dental erosions with multiple dental abscesses. She states she contacted her PCP and oral surgeon and is not able to be seen until Saturday. She is been using Orajel without relief of symptoms. No dysphonia drooling trismus no other acute symptoms or complaints, HPI HPI Patient is a [age] year old [sex] who presents with [] Review of Systems Review of Systems Constitutional: Denies fever or chills [] Eyes: Denies change in visual acuity, redness, or eye pain [] HENT: Denies nasal congestion or sore throat [] Respiratory: Denies cough or shortness of breath [] Cardiovascular: No additional information not addressed in HPI [] GI: Denies abdominal pain, nausea, vomiting, bloody stools or diarrhea [] : Denies dysuria or hematuria [] Musculoskeletal: Denies back pain or joint pain [] Integument: Denies rash or skin lesions [] Neurologic: Denies headache, focal weakness or sensory changes [] Endocrine: Denies polyuria or polydipsia [] All other systems were reviewed and found to be within normal limits, except as documented in this note. Allergies Allergies Allergies Coded Allergies Type Severity Reaction Last Updated Verified ketorolac Allergy Severe 11/02/14 No NSAIDS (Non-Steroidal Anti-Inflamma Allergy Intermediate Rash 11/02/14 No levofloxacin Allergy Intermediate Hives 11/02/14 No nitroglycerin Allergy Intermediate 11/02/14 No prochlorperazine Allergy Intermediate 11/02/14 No Physical Exam Physical Exam Constitutional: Well developed, well nourished, no acute distress, non-toxic appearance. [] HENT: Normocephalic, atraumatic, bilateral external ears normal, oropharynx m oist, widespread dental caries with multiple erosions extending into the gingiva, no obvious discrete soft tissue abscess. No dysphonia drooling or trismus.[] Eyes: PERRLA, EOMI, conjunctiva normal, no discharge. [] Neck: Normal range of motion, no tenderness, supple, no stridor. [] Neurologic: Alert and oriented X 3, normal motor function, normal sensory function, no focal deficits noted. [] Psychologic: Affect normal, judgement normal, mood normal. [] Current Patient Data Vital Signs Vital Signs Date Time Temp Pulse Resp B/P (MAP) Pulse Ox O2 Delivery O2 Flow Rate FiO2 12/12/18 14:38 98.3 113 18 97 Room Air EKG EKG [] Radiology/Procedures Radiology/Procedures [] Course & Med Decision Making Course & Med Decision Making Pertinent Labs and Imaging studies reviewed. (See chart for details) [Concern for developing abscess. Atibiotics prescribed with instructions to follow-up with general surgeon on Saturday.] Final Impression Final Impression [dental pain from dental caries] Dragon Disclaimer Dragon Disclaimer This electronic medical record was generated, in whole or in part, using a voice recognition dictation system. DARRYL DODGE DO Dec 12, 2018 15:26
== END 2018-12-12 15:03 | disposition home or self-care (01) ==
LOC: ER 14:27
DX: K02.9 Dental caries, unspecified (principal); I10 Essential (primary) hypertension; F17.200 Nicotine dependence, unspecified, uncomplicated; Z87.442 Personal history of urinary calculi; Z90.49 Acquired absence of other specified parts of digestive tract; Z90.710 Acquired absence of both cervix and uterus; Z88.8 Allergy status to other drugs, medicaments and biological substances; Z88.6 Allergy status to analgesic agent; Z88.1 Allergy status to other antibiotic agents
CPT/HCPCS: 99283